=== PATIENT | female | born 2000 | race Caucasian/White ===

== ENCOUNTER 2021-04-29 15:33 | Emergency (ER) | payer OTHER ==
[~2021-04-29] VITALS: Ht 175.3 cm; Wt 117.9 kg
[2021-04-29 16:55] VITALS: BP 142/70
[2021-04-29] MEDS ORDERED: BOOSTRIX IM ONE ×2 (17:46→18:00)
[2021-04-29] MEDS ORDERED: TRIPLE ANTIBIOTIC OINTMENT TP ONE (17:48)
--- NOTE | 2021-04-29 17:51 | ER.PDOC ---
General Chief Complaint: Skin Rash/Abscess Stated Complaint: BLISTER R THIGH Time seen by MD: 17:40 Source: patient Exam Limitations: no limitations History of Present Illness Initial Comments Patient is a 20-year-old woman who presents to the emergency department with chief complaint of having a blister on the anterior aspect of her right thigh. She states her jeans were rubbing against her thigh yesterday. She states she put a Band-Aid over the blister and it irritated her skin worse. She reports pain and swelling of the site. She denies any surrounding erythema, warmth, discharge, lymphangitic streaking. She denies any trauma. She states she thinks she may have also sustained an insect bite.She states she is unsure of her last tetanus Timing/Duration: 24 hours Severity: mild Location: RLE Quality: painful Identified Cause: yes Exposure: other (Jeans rubbed on anterior aspect of leg) Allergies: Coded Allergies: No Known Allergies (Unverified , 04/29/21) Past Medical History Medical History: no pertinent history Surgical History: appendectomy Family History Significant Family History: cancer Social History Smoking: non-smoker Alcohol Use: occassionally Drug Use: none Constitutional: denies fever Skin: denies rash Hematologic/Lymphatic: denies easy bleeding, denies easy bruising All Other Systems: Reviewed and Negative Physical Exam General Appearance: alert, no distress Skin: warm/dry, other (She has 2 cm superficial abrasion over the anterior aspect of her right thigh. She has 2, 3 mm abrasions Just lateral to the larger 1. There is no surrounding erythema, warmth, swelling, tenderness, discharge.) Location: RLE (Anterior thigh) Character: symmetric, erythematous With: tenderness Extremities: non-tender, nml ROM, no edema EENT: eyes nml inspection Respiratory: no resp. distress NEURO/PSYCH: oriented x 3 Results/Orders Results/Orders Orders - STARR PHILLIPS MD Diph,Mckenna(Mika),Tet Vac/Pf (Adacel V (04/29/21 18:00) Vital Signs Date Time Temp Pulse Resp B/P (MAP) Pulse Ox O2 Delivery O2 Flow Rate FiO2 04/29/21 16:55 98.7 77 18 142/70 (94) 99 Room Air 04/29/21 16:55 98.7 77 18 99 04/29/21 16:55 98.7 77 16 Progress Progress Patient received a tetanus booster and had the wound cleansed and dressed.She has superficial abrasion of her right anterior thigh. She does not appear to have fracture, dislocation, arterial injury, nerve injury, amputation, necrotizing fasciitis, sacral joint, or other serious etiology of her symptoms. Patient will be discharged home. ER DEPART Departure Time of Disposition: 17:49 Disposition: 01 HOME / SELF CARE / HOMELESS Impression: Primary Impression: Abrasion of thigh, right Condition: Improved Referrals: PCP,UNKNOWN (PCP) PRIMARY CARE PROVIDER Additional Instructions: Return immediately if wound is more red, swollen, painful, or drains pus. Keep wound clean and dry. Ibuprofen or Tylenol [id number] as needed for pain. Follow-up with primary care physician in 1 week. Duration or Time Spent with Pa: 15 min Return to Work/School Can a patient return to work?: Yes (04/30/2021) Problem Qualifiers Primary Impression: Abrasion of thigh, right Encounter type: initial encounter Qualified Codes: S70.311A - Abrasion, right thigh, initial encounter STARR PHILLIPS MD Apr 29, 2021 17:51
== END 2021-04-29 18:06 | disposition home or self-care (01) ==
LOC: ER 15:33
DX: S70.311A Abrasion, right thigh, initial encounter (principal); Z90.49 Acquired absence of other specified parts of digestive tract; X58.XXXA Exposure to other specified factors, initial encounter; Y93.89 Activity, other specified; Y92.89 Other specified places as the place of occurrence of the external cause; Y99.8 Other external cause status
CPT/HCPCS: 90471; 90715; 99283